=== PATIENT | male | born 1970 | race Caucasian/White ===

== ENCOUNTER 2025-04-28 18:34 | Emergency (ER) | payer BC, SELFPAY ==
--- NOTE | 2025-04-28 18:36 | ED.HEATRA ---
HPI - Head Injury General Chief complaint: Nausea/Vomiting/Diarrhea Stated complaint: headache/nauseous Time Seen by Provider: 04/28/25 18:36 Source: patient Mode of arrival: ambulatory Limitations: no limitations History of Present Illness HPI Narrative: Ramesh is a 54-year-old male patient presenting to the clinic today with complaints of headache and nausea that began earlier today. He reports 3-4 hours ago he took ibuprofen and this helped alleviate his symptoms. States he has never had a headache with nausea in the past also feels though he may have some brain fog. Nausea comes and goes. Rates the headache a 5/10 currently. Denies any URI symptoms, shortness of breath, chest pain, dizziness, or urinary symptoms. No fevers, chills, body aches. Denies fatigue. Thought he may be dehydrated so he drank some electrolyte solution and this did not change his symptoms. States he has had increase in stress. 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 No history migraine headaches. Related Data Allergies Allergy/AdvReac Type Severity Reaction Status Date / Time No Known Allergies Allergy Verified 04/28/25 18:37 Review of Systems Review of Systems: Pertinent positives per HPI. Patient denies any fever, chills, rash, visual changes, dizziness, cough, runny nose, sore throat, shortness of breath, chest pain, palpitations, vomiting, diarrhea, constipation, abdominal pain, or any urinary issues. PMFSH Comments At the time of my signature, I reviewed and agree with the nursing past medical, surgical, social, and family history. There is no relevant family history pertinent to the patient complaint. Exam Narrative: General: Well-developed, well nourished, in no apparent distress Head: Normocephalic, atraumatic Eyes: Pupils equally round and reactive to light bilaterally, EOM intact, sclera and conjunctive clear, no discharge, lids normal Ears: TMs intact and clear, ear canals clear, no drainage, grossly hearing normal. Nose: Nares patent, no discharge, no inflammation, no sinus tenderness. Mouth: Oropharynx without lesions or masses, good dentition, MMM. Tongue midline, even rise and fall of uvula Neck: Supple, trachea midline, no enlargement of anterior or posterior cervical nodes, no thyroid masses or goiter palpable. Cardio: Regular rate and rhythm, s1 and s2 normal, no murmur appreciated. Resp: Clear to auscultation bilaterally anteriorly and posteriorly, no rhonchi, rales, wheezing or rubs Musculoskeletal: No deformity, non-tender to palpation, grossly normal range of motion, muscle strength strong and equal, peripheral pulse strong, no edema, no cyanosis, normal gait and station Neuro: Alert and oriented x4 with normal speech, no focal deficits, cranial nerves I through XII intact, muscle strength 5 out of 5, sensation intact bilaterally, negative Romberg test Course Course Emergency Course: Portions of this record may have been created with voice recognition software. Level of Care: Express Care Visit Vital Signs Vital signs: Vital Signs Temperature 36.4 C 04/28/25 18:48 Pulse Rate 55 L 04/28/25 18:48 Respiratory Rate 16 04/28/25 18:48 Blood Pressure 129/73 04/28/25 18:48 Pulse Oximetry 100 04/28/25 18:48 Oxygen Delivery Room Air 04/28/25 18:48 Temperature 36.4 C 04/28/25 18:48 Pulse Rate 55 L 04/28/25 18:48 Respiratory Rate 16 04/28/25 18:48 Blood Pressure 129/73 04/28/25 18:48 Pulse Oximetry 100 04/28/25 18:48 Oxygen Delivery Room Air 04/28/25 18:48 Vital signs reviewed MDM - Head Injury MDM Narrative Medical decision making narrative: At the time of visit patient is resting comfortably on the exam table. Patient appears to be nontoxic. Neuro checks are normal in the clinic today. Plan: Patient states he has a frontal headache that is improving after taking ibuprofen. He has nausea the comes and goes. Neurologically he is intact. Blood sugar was 109. Vital signs are stable. Denies any chest pain, shortness breath, dizziness, or visual changes. I suspect patient has acute headache. Supportive measures were discussed with the patient and they voiced understanding discharge instructions and agrees to treatment plan. Return precautions reviewed Differential Diagnosis Differential diagnosis: Likely other (Migraine headache, acute headache, viral syndrome, dehydration) Lab Data Labs: Lab Results 04/28/25 Range/Units 18:58 POC Capillary Glucose 109 H (65-105) mg/dl Discharge Plan Discharge Clinical Impression: Nausea Acute headache Qualifiers: Headache type: unspecified Intractability: not intractable Qualified Code(s): R51.9 - Headache, unspecified Patient Disposition: Home Condition: Stable Instructions: Antibiotic Form, Acute Headache (ED), Acute Nausea and Vomiting (ED) Additional Instructions: Take prescription medications only as prescribed Increase fluids and stay well hydrated Tylenol/motrin for pain/fever Flonase and OTC antihistamines as directed Vicks vapor rub to open sinuses Sinus rinses for congestion Cepacol spray, cough drops, throat lozenges, warm tea with honey/lemon, gargle salt water to soothe throat BRAT diet for diarrhea Clear liquids x 24 hours then advance as tolerated for nausea/vomiting Go to the ED if you develop a worsening in your condition- high fever not controlled by Tylenol or Motrin, dehydration, weakness, lethargy, shortness of breath, or chest pain. Follow up with your PCP in 3-5 days if symptoms persist. Patient Language: [place] Prescriptions: New ondansetron 4 mg tablet,disintegrating 4 mg PO Q6H PRN (Reason: nausea and vomiting) 3 Days Qty: 12 0RF Follow-up/Referrals: UNKNOWN,DOCTOR [Non-Staff] - Time of Disposition: 19:01 Quality NIHSS Nursing Documentation ED NIHSS nursing documentation: reviewed/agree
[2025-04-28 18:48] VITALS: BP 129/73; PULSE 55; RESP 16; TEMP 36.4; O2SAT 100
[2025-04-28 19:01] LABS: Glucose Point of Care 109 mg/dl (65-105)
== END 2025-04-28 19:10 | disposition home or self-care (01) ==
PROVIDERS: Emergency Provider Nurse Practitioner Family
DX: R11.0 Nausea (principal); R51.9 Headache, unspecified
CPT/HCPCS: 82948; 99213; G0463